=== PATIENT | female | born 1975 | race Caucasian/White ===

== ENCOUNTER 2018-09-02 14:37 | Emergency (ER) | payer OTHER ==
[~2018-09-02] VITALS: Ht 160 cm; Wt 49.4 kg
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
--- NOTE | 2018-09-02 14:47 | NUR ---
PT DENIES LOC.
[2018-09-02 16:41] LABS: *URINE HCG, QUAL NEGATIVE (NEGATIVE)
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
--- NOTE | 2018-09-02 17:21 | NUR ---
PT BACK IN ER FROM RADIOLOGY.
--- NOTE | 2018-09-02 17:38 | NUR ---
Patient discharged to home in stable conditon. Written and verbal after care instructions given. Patient verbalizes understanding of instructions. ALL BELONGINGS W/ PT. PT SELF-AMBULATED W/O DIFFICULTY.
[2018-09-02 17:39] VITALS: BP 118/85
== END 2018-09-02 17:39 | disposition home or self-care (01) ==
LOC: ER 14:37
DX: S30.1XXA Contusion of abdominal wall, initial encounter (principal); S09.90XA Unspecified injury of head, initial encounter; Y04.0XXA Assault by unarmed brawl or fight, initial encounter; Y93.89 Activity, other specified; Y92.89 Other specified places as the place of occurrence of the external cause; Y99.8 Other external cause status
CPT/HCPCS: 70450; 72125; 84703; A4663